=== PATIENT | female | born 1970 | race Two or more races ===

== ENCOUNTER 2021-12-05 08:22 | Day surgery (SDC) | payer MEDICAID ==
[2021-12-05] VITALS (8 sets, daily range): BP systolic 100–129; BP diastolic 56–110
[~2021-12-05] VITALS: Ht 165.1 cm; Wt 62.2 kg
[~2021-12-05 08:22] MED LIST: AMLO5TAB16 PO; ATOR40TA72 PO; ESCI-8 PO; IBUP-1986 PO; RIME75TA PO; SUMA100T16 PO; TOP100T PO; TRAZ-251 PO; ceFOXitin 2GM-NS 100mL ADDvant 100 ML IV ONE; famotidine 20mg tablet PO ONE; ringers solution, lacted 1,000 ML IV SCH
[2021-12-05 10:01] LABS: BASOPHILS % (AUTO) 0.8 % (0-1); EOSINOPHILS # (AUTO) 0.2 X10'3 (0-0.9); EOSINOPHILS % (AUTO) 3.5 % (0-6); LYMPHOCYTES # (AUTO) 0.7 X10'3 (1.1-4.8); LYMPHOCYTES % (AUTO) 11.7 % (21-51); MEAN CORPUSCULAR HEMOGLOBIN 31.7 PG (27.0-31.0); MEAN CORPUSCULAR HGB CONC 34.2 g/dL (33.0-36.5); MEAN CORPUSCULAR VOLUME 92.8 FL (78-98); MONOCYTES # (AUTO) 0.5 X10'3 (0-0.9); MONOCYTES % (AUTO) 9.3 % (2-12); NEUTROPHILS # (AUTO) 4.3 X10'3 (1.8-7.7); NEUTROPHILS % (AUTO) 74.7 % (42-75); PRE OP HEMATOCRIT 39.3 % (35.0-45.0); PRE OP HEMOGLOBIN 13.4 g/dL (12.0-16.0); PRE OP PLATELET COUNT 235 X10'3 (140-440); RED BLOOD COUNT 4.24 X10'6 (4.20-5.60); RED CELL DISTRIBUTION WIDTH 13.7 % (11.5-14.5)
[2021-12-05 10:12] LABS: GLUCOSE, URINE NEGATIVE (Neg); KETONES,URINE NEGATIVE (Neg); LEUKOCYTE ESTERASE ,URINE MODERATE (Neg); NITRITES, URINE NEGATIVE (Neg); OCCULT BLOOD,URINE NEGATIVE (Neg); PH,URINE 7.5 (4.8-8.0); PROTEIN,URINE NEGATIVE (Neg); UROBILINOGEN,URINE 0.2 E.U/dL (0.2-1.0)
[2021-12-05 10:18] LABS: ALBUMIN 4.3 G/DL (3.4-5.0); ALKALINE PHOSPHATASE 140 IU/L (46-116); BLOOD UREA NITROGEN 9 MG/DL (7-18); BUN/CREATININE RATIO 11.5 (6.6-38.0); CALCIUM 9.3 MG/DL (8.5-10.1); CHLORIDE 105 MMOL/L (99-107); CREATININE 0.78 MG/DL (0.40-0.90); PRE OP ALT 41 U/L (30-65); PRE OP ANION GAP 12 (8-16); PRE OP AST 24 U/L (10-37); PRE OP BILIRUB, TOTAL 0.5 MG/DL (0.0-1.0); PRE OP GLUCOSE 85 MG/DL (70-104); PRE OP POTASSIUM 3.6 MMOL/L (3.4-5.1); PRE OP SODIUM 137 MMOL/L (135-145); TOTAL CARBON DIOXIDE 19.7 MMOL/L (24-32); TOTAL PROTEIN 8.7 G/DL (6.4-8.2); eGFR 78 ML/MIN
[2021-12-05 10:19] LABS: COLOR,URINE STRAW (Yellow); UA COLLECTION TYPE NON-SPECIFIED
[2021-12-05 10:21] LABS: CLARITY,URINE SLIGHTLY CLOUDY (Clear)
[2021-12-05 10:23] LABS: AMORPHOUS PHOSPHATES 2+; MUCUS STRANDS NONE SEEN /LPF (Neg); RBC,URINE NONE SEEN /HPF (0-2); SQUAMOUS EPITHELIAL CELL,UR MODERATE /LPF (FEW)
[2021-12-05 10:24] LABS: BACTERIA,URINE 1+ /HPF (Neg)
[2021-12-05] MEDS ORDERED: BUPIVAcaine/PF 2.5 mg/ml (0.25%) 30ml vial ONE (12:46)
[2021-12-05] MEDS ORDERED: sevoflurane 250ml liquid IH ONE (13:16)
[2021-12-05] MEDS ORDERED: fentaNYL/PF 50MCG/1 ML 2ML syringe ONE (13:20)
[2021-12-05] MEDS ORDERED: midazolam 1 mg/ML 2ml injection ONE (13:21)
[2021-12-05] MEDS ORDERED: LIDOcaine 2% (20mg/ml) 5ml vial ONE (13:50)
[2021-12-05] MEDS ORDERED: dexamethasone sod phosphate 4mg/ml inj. ONE (13:50)
[2021-12-05] MEDS ORDERED: propofol inj 20 ML IV ONE (13:50)
[2021-12-05] MEDS ORDERED: ondansetron/PF 4mg/2ml inj ONE (13:50)
[2021-12-05] MEDS ORDERED: rocuronium 10mg/ml inj IV ONE (13:50)
[2021-12-05] MEDS ORDERED: glycopyrrolate 0.2mg/ml inj ONE (14:34)
[2021-12-05] MEDS ORDERED: morphine 4 MG/ML inj SYRINge ONE (14:34)
[2021-12-05] MEDS ORDERED: neostigmine methylsulfate 1 MG/ML 10ml vial ONE (14:34)
[2021-12-05] MEDS ORDERED: morphine 2 MG/ML inj. syringe IV PRN (14:45)
[2021-12-05] MEDS ORDERED: meperidine/PF 25mg/ml syringe IV PRN (14:45)
[2021-12-05] MEDS ORDERED: hydrALAZINE 20mg/ml inj. IV PRN (14:45)
[2021-12-05] MEDS ORDERED: acetaminophen 1,000mg/100ml IV 100 ML IV PRN (14:45)
[2021-12-05] MEDS ORDERED: proCHLORperazine 10 MG/2 ml inj IV PRN (14:45)
[2021-12-05] MEDS ORDERED: morphine 4 MG/ML inj SYRINge IV PRN (14:45)
[2021-12-05] MEDS ORDERED: HYDROmorphone/PF 0.2 MG/ML SYRINGE IV PRN ×2 (14:45)
[2021-12-05] MEDS ORDERED: ondansetron/PF 4mg/2ml inj IV PRN (14:45)
[2021-12-05] MEDS ORDERED: ringers solution, lacted 1,000 ML IV SCH (14:45)
[2021-12-05] MEDS ORDERED: labetalol 20mg/4ml (5mg/ml) syringe IV PRN (14:45)
--- NOTE | 2021-12-05 14:45 | NUR ---
Received from OR via BED, accompanied by Anesthesiologist and report given by Anesthesiologist. PATIENT WAKING UP, NO S/S OF PAIN, V/S WNL, SCD ON, 20G TO LUE, ABDOMEN LAP SITE CLEAN W/ NO S/S OF COMPLICATIONS
[2021-12-05] MEDS ORDERED: HYDROcodone/acetaminophen 10/325mg tab PO ONE (15:12)
--- NOTE | 2021-12-05 15:45 | NUR ---
PATIENT A&OX4, STATES PAIN CONTROL, V/S WNL, SCD OFF, 20G TO LUE D/C, ABDOMEN LAP SITE CLEAN W/ NO S/S OF COMPLICATIONS. I HAVE REVIEWED D/C INSTRUCTIONS WITH PATIENT and they have verbalized understanding patient d/c home with all belongings and family gave transport home.
== END 2021-12-05 15:45 | disposition home or self-care (01) ==
LOC: PRE-OP 08:22
PROVIDERS: ATTEND Surgery
DX: K38.1 Appendicular concretions (principal); F41.9 Anxiety disorder, unspecified; G43.909 Migraine, unspecified, not intractable, without status migrainosus; E78.5 Hyperlipidemia, unspecified; Z79.899 Other long term (current) drug therapy; Z98.890 Other specified postprocedural states; Z90.49 Acquired absence of other specified parts of digestive tract; Z85.038 Personal history of other malignant neoplasm of large intestine
CPT/HCPCS: 36415; 44238; 44970; 80053; 81001; 82948; 85025; 87635; 93005; C9803; J0131; J0694; J1100; J2175; J2250; J2270; J2405; J2704; J2710; J3010; J3490; J7120; Z7506; Z7508; Z7512; A4215; A4618; A7000